=== PATIENT | female | born 1965 | race Caucasian/White ===

== ENCOUNTER 2017-02-02 06:07 | Day surgery (SDC) | payer BC ==
[~2017-02-02 06:07] MED LIST: Famotidine IV* 10 MG/ML 2 ML (20 mg) IV ONE; Metoclopramide TAB* 10 MG PO ONE
[2017-02-02] MEDS ORDERED: Metoclopramide TAB* 10 MG ONE (06:47)
[2017-02-02] MEDS ORDERED: Famotidine IV* 10 MG/ML 2 ML (20 mg) ONE (06:47)
[2017-02-02] MEDS ORDERED: Ondansetron INJ* 2 MG/ML VIAL ONE (07:24)
[2017-02-02] MEDS ORDERED: Dexamethasone IV* 4 MG/ML 1 ML (4 MG) ONE (07:24)
[2017-02-02] MEDS ORDERED: Propofol* 10 MG/ML 20 ML BTL IV PUSH ONE (07:24)
[2017-02-02] MEDS ORDERED: Lidocaine 2% PF * 5 ML VIAL ONE (07:24)
[2017-02-02] MEDS ORDERED: Midazolam* 1 MG/ML 5 ML VIAL (5 MG) ONE (07:24)
[2017-02-02] MEDS ORDERED: fentaNYL* 50 MCG/ML 2 ML VIAL (100 MCG VIAL) ONE ×2 (07:24→08:27)
[2017-02-02] MEDS ORDERED: KETAMINE HCL* 50 MG/ML 10 ML VIAL ONE (07:24)
[2017-02-02] MEDS ORDERED: Ketorolac INJ* 30 MG/ML 1 ML VIAL ONE (07:24)
[2017-02-02] MEDS ORDERED: Ondansetron INJ* 2 MG/ML VIAL IV PRN (08:11)
[2017-02-02] MEDS ORDERED: HYDROmorphone* 1 MG/ML 1 ML SYR IV PRN (08:11)
[2017-02-02] MEDS ORDERED: fentaNYL* 50 MCG/ML 2 ML VIAL (100 MCG VIAL) IV PRN (08:11)
[2017-02-02] MEDS ORDERED: oxyCODONE/Acetamin 5/325 MG* TAB PO PRN (08:11)
[2017-02-02 09:51] VITALS: BP 118/71
--- NOTE | 2017-02-11 00:59 | OP ---
DATE OF OPERATION: 02/02/17 - [facility] DATE OF : 61 SURGEON: Dwight Dixon MD DRIVER RETRAINING INSTRUCTOR: None. ANESTHESIOLOGIST: Zach Domingo MD ANESTHESIA: General anesthetic with endotracheal intubation. PRE-OP DIAGNOSIS: Menometrorrhagia with an intrauterine mass. POST-OP DIAGNOSIS: Menometrorrhagia with intrauterine mass, pending pathology. OPERATIVE PROCEDURE: Hysteroscopic polypectomy and D and C. ESTIMATED BLOOD LOSS: Minimal, less than 25 cc. IV FLUIDS: She received 1200 cc of IV crystalloid fluid. HYSTEROSCOPIC DEFICIT: There was 80 cc hysteroscopic deficit in the MyoSure device . URINE OUTPUT: 75 cc of clear urine. FINDINGS: Exam under anesthesia revealed uterus that was retroverted and sounded to 9 cm in length. 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 DESCRIPTION OF PROCEDURE: The patient was taken to the operating room where she was identified. She was placed on the operating table where a general anesthetic with endotracheal intubation was obtained without difficulty. She was then placed in the dorsal lithotomy position, prepped and draped in the usual sterile fashion. Attention was then turned on to the patient's perineum where bladder was catheterized and drained of clear urine. At this point, a weighted speculum was inserted into the patient's vagina. The cervix was identified, grasped with a single-tooth tenaculum. Uterus was then sounded to 9 cm and noted to be in retroverted position. The cervix was dilated with Hegar dilators. A MyoSure hysteroscope was introduced into the cervix. Once the MyoSure hysteroscope was introduced into the cervix, a survey of the patient 's intrauterine cavity as noted above. At this point, the mass in the uterine cavity was removed using MyoSure device and specimen sent to Pathology. After the mass was completely removed, the hysteroscopic procedure was followed by sharp curettage and endometrial curettings were sent to Pathology as well. At this point, all the instruments were removed from the patient's vagina. Sponge, lap, and needle counts were correct x3. She was then transferred to recovery room area in stable condition. [id number]/[facility] #: [id number] [facility]
== END 2017-02-02 10:23 | disposition home or self-care (01) ==
LOC: OR 06:07
PROVIDERS: ATTEND Obstetrics & Gynecology
DX: N84.0 Polyp of corpus uteri (principal); N92.1 Excessive and frequent menstruation with irregular cycle; E78.00 Pure hypercholesterolemia, unspecified; F32.9 Major depressive disorder, single episode, unspecified; F41.9 Anxiety disorder, unspecified
CPT/HCPCS: 88305; A9270-GY; J1100; J1885; J2250; J2405; J2704; J3010